=== PATIENT | female | born 1990 | race Caucasian/White ===

== ENCOUNTER 2019-03-12 11:54 | Emergency (ER) | payer SELFPAY ==
[~2019-03-12] VITALS: Ht 167.6 cm; Wt 77.1 kg
--- NOTE | 2019-03-12 12:00 | NUR ---
Patient ambulated with stable gait as she ran into the dept as soon as she was called to be triaged. During triage patient was uncooperative, and appeared very agitated. Patient refused to answer simple questions from triage nurse. Upon assessment, patient had rapid speech, and was unable to sit still. Unable to get complete history from patient. Attempted to calm patient down, but she refuses to comply. Patient reported that her ear had a "cloggy" feeling and could not hear, assumes that it is because she had snorted xanax first thing upon waking up in the AM. 1210: ERMD at bedside and patient was extremely uncooperative with ERMD and kept disregarding what the MD was trying to discuss with her. Patient remains agitated and stormed out of the department.
--- NOTE | 2019-03-12 12:17 | NUR ---
Patient refused ALL treatment to be performed. Patient eloped from facility. ER physician aware. Patient does not pose a risk for any SI/HI, no intravenous access performed. Patient ambulated out of the department with steady gait.
== END 2019-03-12 12:15 | disposition left against medical advice (07) ==
LOC: ER 11:54
DX: H91.93 Unspecified hearing loss, bilateral (principal); F32.9 Major depressive disorder, single episode, unspecified; F17.200 Nicotine dependence, unspecified, uncomplicated
CPT/HCPCS: A4663

== ENCOUNTER 2019-09-10 15:41 | Inpatient (IN) | payer MEDICAID ==
[2019-09-10] MEDS ORDERED: ZOLPIDEM 5 MG TABLET PO PRN (18:00)
[2019-09-10] MEDS ORDERED: ONDANSETRON 4 MG/2 ML VIAL IV PRN (18:00)
[2019-09-10] MEDS ORDERED: Z GUARD REMEDY PASTE 57 GM TUBE TOP PRN (18:00)
[2019-09-10] MEDS ORDERED: IV NS 1000 ML 1,000 ML IV ONE (18:00)
[2019-09-10] MEDS ORDERED: diphenhydrAMINE 50 MG/1 ML VIAL IV PRN (18:00)
[2019-09-10] MEDS ORDERED: MAGNESIUM HYDROXIDE 30 ML LIQUID UDC PO PRN (18:00)
[2019-09-10 18:44] VITALS: BP 131/70
--- NOTE | 2019-09-10 18:54 | NUR ---
ADMISSION: Patient admitted from [facility] at 1600. Patient is AAO x 2-3 with episodes of confusion and forgetfulness noted. Pt. able to express needs at times but very confused; unable to answer most questions at this time due to mental status. IN no acute distress. Vital signs stable for patient. c/o pain at times upon assessment. Skin assessment done. Pictures taken. All other needs attended, safety measures in place, call light left at bed side, endorsed to next shift and will continue wit care.
--- NOTE | 2019-09-10 19:00 | NUR ---
PATIENT ALERT BUT WITH CONFUSION, PATIENT ALTERED AT THIS TIME, BUT ABLE TO ANSWER SOME QUESTIONS, CONT TO MONITOR.
[2019-09-10 20:00] VITALS: BP 134/78
--- NOTE | 2019-09-10 20:30 | NUR ---
PATIENT REFUSED MRSA SCREENING, GETS AGITATED... WILL CONTINUE TO TRY.
[2019-09-10] MEDS: HYDROCODONE/APAP 5-325MG TABLET PO PRN (21:39)
[2019-09-10] MEDS: IV NS 1000 ML 1,000 ML IV SCH (22:30)
--- NOTE | 2019-09-10 22:45 | NUR ---
IVÁN IRAHETA NP WAS IN THE UNIT AND NOTIFY HER ABOUT PATIENT EPISODE OF WITHDRAWAL, WITH ORDER OF ATIVAN 1MG IV PRN EVERY SIX.
[2019-09-10] MEDS: LORAZEPAM 2 MG/1 ML VIAL IV PRN (22:54)
[2019-09-11] VITALS (7 sets, daily range): BP systolic 96–144; BP diastolic 58–88
--- NOTE | 2019-09-11 00:18 | NUR ---
IVÁN IRAHETA NP INCREASED NS IV AT 125ML/HR.
--- NOTE | 2019-09-11 01:50 | NUR ---
PATIENT ALERT BUT STILL ALTERED, TELE MONITOR SINUS RHYTHM , HR 82, PATIENT MAKES FUNNY NOISES, HALLUCINATIONS TALKING TO SELF, PATIENT ENCOURAGE AND OFFER TO WALK TO TOILET FOR ELIMINATIONS, BUT REFUSED, RESISTIVE WITH CARE, CONT TO MONITOR.
[2019-09-11] MEDS: IV NS 1000 ML 1,000 ML IV SCH (02:18)
[2019-09-11] MEDS: ACETAMINOPHEN 325 MG TABLET PO PRN ×2 (04:25→08:24)
[2019-09-11] MEDS: HYDROCODONE/APAP 5-325MG TABLET PO PRN ×3 (04:31→14:38)
--- NOTE | 2019-09-11 06:49 | NUR ---
PATIENT SLEPT INTERMITTENTLY, NO SOB NO CHEST PAIN, TELE MONITOR SINUS RHYTHM, CONT ON PAIN MANAGEMENT, PATIENT STILL CONFUSED AND ALTERED, PATIENT ASSISTED WITH TOILETING, CONT TO MONITOR.
--- NOTE | 2019-09-11 07:30 | NUR ---
Orienting with SHADIA Beltre today. All charting/documentation and assessment notes reviewed by SHADIA Beltre.
[2019-09-11] MEDS: LORAZEPAM 2 MG/1 ML VIAL IV PRN ×2 (08:12→23:11)
--- NOTE | 2019-09-11 08:30 | NUR ---
Patient received in bed. Pt is AOx4, denies any SOB. Patient complains of generalized pain at 10/10 and requested for tylenol 625mg. Patient noted to be restless, IV Ativan and Tylenol PO given. Will reassess for effectiveness
[2019-09-11] MEDS ORDERED: PANTOPRAZOLE SODIUM 40 MG VIAL IV SCH (09:00)
[2019-09-11 10:29] LABS: BILIRUBIN,DIRECT 0.2 mg/dL (0.0-0.2); BILIRUBIN,TOTAL 0.7 mg/dL (0.2-1.0); CREATININE 0.7 mg/dL (0.6-1.3); MAGNESIUM 1.9 mg/dL (1.8-2.4); PHOSPHOROUS 2.7 mg/dL (2.5-4.9); POTASSIUM 3.7 mmol/L (3.5-5.1); TOTAL PROTEIN, SERUM 7.3 g/dL (6.4-8.2)
[2019-09-11 10:34] LABS: BASOPHILS % (AUTO) 0.2 % (0.0-2.0); HEMATOCRIT 36.9 % (31.2-41.9); HEMOGLOBIN 12.7 g/dL (10.9-14.3); LYMPHOCYTES # (AUTO) 1.4 K/uL (20.0-40.0); LYMPHOCYTES % (AUTO) 11.8 % (20.5-51.5); MEAN CORPUSCULAR HEMOGLOBIN 30.3 uug (24.7-32.8); MEAN CORPUSCULAR HGB CONC 35 g/dL (32.3-35.6); MONOCYTES # (AUTO) 0.7 K/uL (2.0-10.0); MONOCYTES % (AUTO) 6.3 % (0.0-11.0); NEUTROPHILS # (AUTO) 9.5 K/uL (1.8-8.9); NEUTROPHILS % (AUTO) 81.7 % (38.5-71.5); PLATELET COUNT (AUTO) 245 K/uL (179-408); RED BLOOD CELL COUNT(AUTO) 4.19 MIL/uL (3.63-4.92); WHITE BLOOD COUNT (AUTO) 11.6 K/uL (3.8-11.8)
--- NOTE | 2019-09-11 11:45 | NUR ---
JENNIFER Brown came and advised patient to have a psych consult.
--- NOTE | 2019-09-11 12:04 | NUR ---
Spoke with Dr. Patel regarding pt's refusal for monitoring tech. okay to discontinue to monitoring tech.
--- NOTE | 2019-09-11 14:18 | NUR ---
Spoke with DAIRY BACTERIOLOGIST Stephanie Nagy regarding pt's request for Klonopin and increasing agitation, restlessness. New orders received and carried out.
[2019-09-11] MEDS: CLONAZEPAM 1 MG TABLET PO PRN (14:30)
[2019-09-11] MEDS: IV NS 1000 ML 1,000 ML IV PRN (14:37)
[2019-09-11] MEDS ORDERED: ACETAMINOPHEN/CODEINE 300-30 MG TABLET PO PRN (15:15)
--- NOTE | 2019-09-11 18:10 | NUR ---
Patient in bed, alert but still altered. Patient makes funny noise, yelling and moaning. Patient doesn't show any sign of respiratory distress. Patient d/c from tele monitor per Dr. Patel. IV fluids currently running at 125ml/hour. Attended to her needs. Safety measures in place, bed in lowest position, call lights within reach. Will endorse to oncoming RN for the continuity of care.
--- NOTE | 2019-09-11 18:55 | NUR ---
Spoke with Dr. Mason (psych) on the telephone. Full SBAR report given. stated that he will see the pt later tonight.
--- NOTE | 2019-09-11 19:30 | NUR ---
Received patient sitting on her chair, noted screaming and crying. Redirected and tried to calm patient but patient is so hard to redirect. Assisted patient back to bed. VS checked. Safety measures observed. Call light in reach
--- NOTE | 2019-09-11 20:00 | NUR ---
Patient seen and examined by Dr. Mason w/ n.o placed
[2019-09-11] MEDS ORDERED: HYDROMORPHONE HCL 2 MG TABLET PO ONE (20:30)
--- NOTE | 2019-09-11 20:30 | NUR ---
Patient still noted screaming and crying and asking for a stronger pain med. Informed Stephanie Nagy NP w/ n.o for Dilaudid 2mg PO x 1 dose now
[2019-09-11] MEDS: QUETIAPINE FUMARATE 100 MG TABLET PO SCH (20:49)
[2019-09-11] MEDS ORDERED: MIRTAZAPINE 15 MG TABLET PO SCH (21:00)
[2019-09-11] MEDS: HALOPERIDOL LACTATE 5 MG/1 ML VIAL IM PRN (22:08)
--- NOTE | 2019-09-11 22:10 | NUR ---
Patient noted w/ disruptive behavior, screaming and unable to redirect. PRN Haloperidol 2mg IM given
--- NOTE | 2019-09-11 23:00 | NUR ---
Patient complaining she's hungry, patient still on NPO. Informed Stephanie Nagy HYPERION ANALYST w/ n.o patient may have ice chips and if tolerated may have pudding. Also n.o for [facility]
[2019-09-12] VITALS: BP 128/65
[2019-09-12] MEDS: IV NS 1000 ML 1,000 ML IV PRN (00:57)
--- NOTE | 2019-09-12 01:04 | NUR ---
Patient still awake, more calm now, requesting for a sleeping pill
[2019-09-12 05:12] VITALS: BP 137/83
--- NOTE | 2019-09-12 06:22 | NUR ---
Patient slept intermittently, noted to be more calm now. Patient pulled her IV out. Midline to be inserted around 9am. All needs attended. Will endorse accordingly
--- NOTE | 2019-09-12 07:10 | NUR ---
Received patient in bed awake but lethargic and not oriented and seemed to talk to self. On RA with no SOB and distress noted at this time. Informed patient of plan to insert midline today at 9am since she's hard stick, verbalized understanding. Call light and valuables within reach. Reinforced to patient to call when she needs something or needs to go to bathroom. Bed locked in lowest position with [id number] up. Will continue to monitor.
[2019-09-12 08:00] VITALS: BP 146/83
[2019-09-12] MEDS: QUETIAPINE FUMARATE 100 MG TABLET PO SCH (08:16)
[2019-09-12] MEDS: HALOPERIDOL LACTATE 5 MG/1 ML VIAL IM PRN (08:17)
--- NOTE | 2019-09-12 08:25 | NUR ---
Patient starting to get agitated. Getting angry at someone in the room, but no one is in the room. Haldol IM PRN given as ordered for agitation.
[2019-09-12] MEDS: CLONAZEPAM 1 MG TABLET PO PRN (08:52)
--- NOTE | 2019-09-12 08:55 | NUR ---
Patient still agitated and anxious, started screaming. Stephanie RODRIGUEZ said to give Klonopin PRN as prescribed.
--- NOTE | 2019-09-12 09:40 | NUR ---
Patient very restless and agitated and changed to her clothes, wants to leave AMA. Talked to patient and advised to stay since MD has not cleared her to leave. Patient getting angry and cursing. Informed Tunde PORRAS and Stephanie RODRIGUEZ, informed to call for clearance and if pt is holdable. Called Dr. Mason and left a message.
[2019-09-12] MEDS ORDERED: LORAZEPAM 2 MG/1 ML VIAL IM ONE (11:45)
[2019-09-12 11:52] VITALS: BP 129/61
[2019-09-12 15:04] LABS: *BILIRUBIN,URIN 1+ (NEGATIVE); *BLOOD, URINE NEGATIVE (NEGATIVE); *CLARITY,URINE CLEAR (CLEAR); *COLOR,URINE YELLOW (YELLOW); *KETONES,URINE 4+ (NEGATIVE); LEUKOCYTE ESTERASE ,URINE NEGATIVE (NEGATIVE); NITRITE, URINE NEGATIVE (NEGATIVE); PH,URINE 6.5 (5.0-8.0); UGLUCOSE NEGATIVE (NEGATIVE)
[2019-09-12 15:13] LABS: BACTERIA,URINE FEW /HPF (NONE SEEN); MUCUS,URINE MANY /LPF (0-FEW); SQUAMOUS EPITHELIAL CELL,UR FEW /HPF (NONE SEEN); WBC,URINE 0-3 /HPF (0-3)
--- NOTE | 2019-09-12 15:30 | NUR ---
Pt very agitated and restless, kept walking around the unit, had to keep redirecting and reeducating pt.Explained risks and benefits of leaving AMA but insisted to leave. procurement professional logistics called and Lexus Torres came and evaluated pt, stated not holdable. Pt signed AMA form. Lexus Torres gave to pt referral list for substance abuse. Stephanie Nagy NP and Dr. Mason informed and made aware.
--- NOTE | 2019-09-12 15:52 | NUR ---
Patient left the unit via wheelchair accompanied by ART OBJECTS REPAIRER. Patient signed AMA forms and belongings list, all accounted for. Patient stated she will be picked up by [facility].
[2019-09-13] MEDS ORDERED: PANTOPRAZOLE SODIUM 40 MG TABLET.DR PO SCH (07:00)
== END 2019-09-12 15:50 | disposition left against medical advice (07) | DRG 52 ==
LOC: TELE3 16:00 → MEDSURG3 09-11 12:07
PROVIDERS: ADMIT Nurse Practitioner Acute Care; ATTEND Nurse Practitioner Acute Care
DX: G92 Toxic encephalopathy (principal); D72.829 Elevated white blood cell count, unspecified; E86.9 Volume depletion, unspecified; Z87.891 Personal history of nicotine dependence; E87.6 Hypokalemia; F23 Brief psychotic disorder; F32.9 Major depressive disorder, single episode, unspecified; F19.11 Other psychoactive substance abuse, in remission; T42.4X5A Adverse effect of benzodiazepines, initial encounter; T43.205A Adverse effect of unspecified antidepressants, initial encounter; T40.7X5A Adverse effect of cannabis (derivatives), initial encounter; Y92.009 Unspecified place in unspecified non-institutional (private) residence as the place of occurrence of the external cause
CPT/HCPCS: 36415; 83735; 84100; 85025; A4663; C9113; G0378; J1200; J1630; J2060; J2405; J7030